=== PATIENT | female | born 1985 | race African-American/Black ===

== ENCOUNTER 2017-07-14 10:59 | Emergency (ER) | payer MEDICAID ==
[2017-07-14] MEDS ORDERED: IPRATROPIUM/ALBUTEROL 0.5-2.5 MG/3 ML AMPUL NEB ONE (11:50)
--- NOTE | 2017-07-14 12:25 | RADIOLOGY REPORT (SQ) ---
EXAM DESCRIPTION: CHEST PA/LAT COMPLETED DATE/TIME: 07/14/2017 12:14 pm REASON FOR STUDY: cough with fever x 1 week COMPARISON: None. EXAM PARAMETERS: NUMBER OF VIEWS: two views TECHNIQUE: Digital Frontal and Lateral radiographic views of the chest acquired. RADIATION DOSE: NA LIMITATIONS: none FINDINGS: LUNGS AND PLEURA: No acute infiltrate or effusion. Lung francis are clear. Bilateral pleu ral thickening. MEDIASTINUM AND HILAR STRUCTURES: No masses or contour abnormalities. HEART AND VASCULAR STRUCTURES: Normal heart and pulmonary vasculature. BONES: No acute findings. HARDWARE: None in the chest. OTHER: No other significant finding. IMPRESSION: All caps TECHNICAL DOCUMENTATION: JOB ID: [id number] 2010 [employer]- All Rights Reserved
--- NOTE | 2017-07-14 12:44 | ER Document Report ---
ED General - General Chief Complaint: Flu Symptoms Stated Complaint: COUGH,CONGESTION,RUNNY NOSE Time Seen by Provider: 07/14/17 11:39 Mode of Arrival: Ambulatory Information source: Patient TRAVEL OUTSIDE OF THE [place] IN LAST 30 DAYS: No - HPI Notes: 32-year-old female presents today with complaints of green productive cough, nasal congestion, sinus pressure, myalgias, fever sore throat and headache x 7 days. Pain 5/10, achy and constant. Denies any rashes. Tried otc cold medications without relief. reports fevers and chills. Eating and drinking ok. Worse when laying flat, better when upright. Vaccinations are UTD, except for flu shot. Denies . Denies any cp, sob, n/v/d, abd pain, dysuria and hemturia - Related Data Allergies/Adverse Reactions: No Known Allergies Allergy (Verified 07/14/17 11:00) Past Medical History - Social History Smoking Status: Current Every Day Smoker Chew tobacco use (# tins/day): No Frequency of alcohol use: Rare Drug Abuse: Marijuana Family History: Reviewed & Not Pertinent Patient has suicidal ideation: No Patient has homicidal ideation: No Renal/ Medical History: Denies: Hx Peritoneal Dialysis Past Surgical History: Reports: Hx Section Review of Systems - Review of Systems Constitutional: No symptoms reported EENT: See HPI Cardiovascular: No symptoms reported Respiratory: See HPI Gastrointestinal: No symptoms reported Genitourinary: No symptoms reported Female Genitourinary: No symptoms reported Musculoskeletal: No symptoms reported Skin: No symptoms reported Hematologic/Lymphatic: No symptoms reported Neurological/Psychological: No symptoms reported Physical Exam - Vital signs Vitals: Temp Pulse Resp BP Pulse Ox 99.0 F 100 22 H 107/68 98 07/14/17 11:14 07/14/17 11:14 07/14/17 11:14 07/14/17 11:14 07/14/17 11:14 Interpretation: Normal - Notes Notes: PHYSICAL EXAMINATION: GENERAL: Well-appearing, well-nourished and in no acute distress. HEAD: Atraumatic, normocephalic. EYES: Pupils equal round and reactive to light, extraocular movements intact, conjunctiva are normal. ENT: TM with effusion, intact, bulging. no erythema. bilateral turbinates with swelling. pharynx without erythema or exudate. no lymphadenopathy. noted nasal congestion and rhinorrhea. NECK: Normal range of motion, supple without lymphadenopathy LUNGS: diminished breath sounds in upper lobes. No accessory muscle usage. BS cleared after breathing treatment. No wheezes, rhonchi or rales. HEART: Regular rate and rhythm without murmurs ABDOMEN: Soft, nontender, nondistended abdomen. No guarding, no rebound. No masses appreciated. Female : deferred Musculoskeletal: Normal range of motion, no pitting or edema. No cyanosis. NEUROLOGICAL: Cranial nerves grossly intact. Normal speech, normal gait. Normal sensory, motor exams PSYCH: Normal mood, normal affect. SKIN: Warm, Dry, normal turgor, no rashes or lesions noted. Course - Re-evaluation Re-evalutation: Rechecked the patient who is resting comfortably. On re-exam, patient is symptomatically improved. Discussed the results of the labs/radiology as well as the diagnosis at great length. Discussed the need to return to the ER for any new or worsening sx. Patient understands to take the Rx as directed. Take antibiotic as directed with food, eat yogurt daily to prevent loose stool. Take prednisone and Tessalon Perles as directed. Keep Ventolin inhaler and a person for when he began to coughing episodes. Work note given. Follow-up with PCP within 3 days. Return to the emergency room symptoms become worse. All questions answered. Patient comfortable with the decision to go home. - Vital Signs Vital signs: Temp Pulse Resp BP Pulse Ox 99.0 F 100 22 H 107/68 98 07/14/17 11:14 07/14/17 11:14 07/14/17 11:14 07/14/17 11:14 07/14/17 11:14 Discharge - Discharge Clinical Impression: Acute bacterial bronchitis Clinical Impression: (Ruled Out): Cough Condition: Good Disposition: HOME, SELF-CARE Additional Instructions: Bronchitis You have acute bronchitis. This disease is an infection or inflammation of the air passageways in your lungs. Symptoms usually include cough, low grade fever, shortness of breath, and wheezing. The cough usually persists for a couple of weeks. Most cases of bronchitis get better without antibiotics. We prescribe antibiotics when we believe bacteria are damaging your airways, or if there's high risk the bronchitis will worsen into pneumonia. Increase your fluid intake. A cool mist humidifier may make your lungs more comfortable. An expectorant (cough medicine that loosens phlegm) can help. If you smoke, STOP!!! Recovery from bronchitis can be somewhat slow, but you should see improvement within a day or two. Repeated episodes of bronchitis may result in lung damage -- for example, chronic bronchitis, recurrent pneumonias, or emphysema. Call the doctor if you develop increasing fever, shortnessBronchitis with Bronchospasm (Wheezing) You have bronchitis with bronchospasm (wheezing). Sometimes people develop wheezing with a chest cold. This occurs either because of an underlying tendency toward asthma or because the virus itself irritates the bronchial tubes. This irritation causes cough, shortness of breath, and wheezing. Emergency treatment of bronchospasm may include adrenaline shots or bronchodilator aerosol. You may feel lightheaded and have a rapid pulse for an hour or two. Rest and get plenty of fluids. At home, we'll treat you with a bronchodilator inhaler. Corticosteroids may be required for some patients. Until you recover, avoid chemical fumes, dusts, pollens, and exercising in very cold or dry air. If you smoke, stop now! Most cases of bronchitis get better without antibiotics. We prescribe antibiotics when we believe bacteria are damaging your airways, or if there's high risk the bronchitis will worsen into pneumonia. Increase your fluid intake. A cool mist humidifier may make your lungs more comfortable. An expectorant (cough medicine that loosens phlegm) can help. Repeated episodes of bronchitis and bronchospasm may result in lung damage -- for example, chronic bronchitis, recurrent pneumonias, or emphysema. If you develop a fever, increased wheezing, chest pain, or severe shortness of breath, you should contact the doctor immediately. of breath, chest pain, bloody sputum, or otherwise worsen. If you have not improved at all after several days, contact the physician. Forms: Return to Work Referrals: LAURE PRICE MD [COMMUNITY BASED STAFF] - Follow up in 3-5 days
[2017-07-14 13:06] VITALS: BP 109/65
== END 2017-07-14 13:06 | disposition home or self-care (01) ==
LOC: ER 10:59
DX: J20.8 Acute bronchitis due to other specified organisms (principal); B96.89 Other specified bacterial agents as the cause of diseases classified elsewhere; F17.200 Nicotine dependence, unspecified, uncomplicated; R05 Cough; R09.81 Nasal congestion; M79.1 Myalgia; J02.9 Acute pharyngitis, unspecified; R51 Headache; R50.9 Fever, unspecified
CPT/HCPCS: 99283; 71046; J7620

== ENCOUNTER 2019-09-26 11:59 | Emergency (ER) | payer MEDICAID ==
--- NOTE | 2019-09-26 12:25 | ER Document Report ---
ED General - General TRAVEL OUTSIDE OF THE U.[place]. IN LAST 30 DAYS: No <MARILYN MENDOZA - Last Filed: 09/26/19 14:13> <JAMIR PAEZ - Last Filed: 09/26/19 17:27> - General Chief Complaint: Near Syncope Stated Complaint: POSSIBLE SYNCOPE Time Seen by Provider: 09/26/19 12:04 - HPI Notes: Chief complaint: "I felt like I was going to pass out" History of present illness: 34-year-old female states she felt fine when she went to work this morning and shortly thereafter became nauseated and vomited once. She says she is felt "dizzy and lightheaded" since then and decided to get a coworker to drive her to the emergency department. She states that while she was riding in the automobile she felt like she was going to pass out although she is not certain if she actually lost consciousness. She continues to feel lightheaded but is somewhat better since arrival here. Patient denies any visual changes or difficulty speaking or swallowing. She denies headache. She denies any focal neurologic symptoms. Patient denies chest pain. She reports that she felt somewhat short of breath earlier. She says she coughed up some clear mucus. She denies fever. She denies shortness of breath at this time. Past medical history is remarkable for history of SLE and she said that at one time about 10 years ago she was briefly admitted to the hospital in coma related to a lupus flare. She also says during that time she had a blood clot in her right leg that was treated with anticoagulation. 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 Patient says she is not seen a doctor within the last 2 to 3 years. She is currently not taking any medications. She has no known allergies. Patient smokes 1 pack of cigarettes per day. Rare social alcohol consumption. Denies drug abuse. (MARILYN MENDOZA) - Related Data Allergies/Adverse Reactions: No Known Allergies Allergy (Verified 07/14/17 11:00) Past Medical History - General Information source: Patient, [facility] Records - Social History Smoking Status: Current Every Day Smoker Frequency of alcohol use: None Drug Abuse: None Family History: Reviewed & Not Pertinent Patient has suicidal ideation: No Patient has homicidal ideation: No - Past Medical History Cardiac Medical History: Reports: Hx Pulmonary Embolism Denies: Hx Coronary Artery Disease Neurological Medical History: Denies: Hx Cerebrovascular Accident, Hx Seizures Endocrine Medical History: Denies: Hx Diabetes Mellitus Type 1, Hx Diabetes Mellitus Type 2 Renal/ Medical History: Denies: Hx Peritoneal Dialysis Past Surgical History: Reports: Hx Section <MARILYN MENDOZA - Last Filed: 09/26/19 14:13> Review of Systems <MARILYN MENDOZA - Last Filed: 09/26/19 14:13> - Review of Systems Notes: Constitutional: Negative for fever. HENT: Negative for sore throat. Eyes: Negative for visual changes. Cardiovascular: Negative for chest pain. Respiratory: As per HPI. Gastrointestinal: As per HPI. Genitourinary: Negative for dysuria. Last normal menstrual period 1 week ago. Musculoskeletal: Negative for back pain. Skin: Negative for rash. Neurological: Negative for headaches, focal weakness or numbness. 10 point ROS negative except as marked above and in HPI. (MENDOZA,MARILYN Blum) Physical Exam <MARILYN MENDOZA - Last Filed: 09/26/19 14:13> - Vital signs Vitals: Temp Pulse Resp BP Pulse Ox 97.9 F 69 16 126/73 H 100 09/26/19 12:19 09/26/19 12:19 09/26/19 12:19 09/26/19 12:19 09/26/19 12:19 - Notes Notes: GENERAL: Well-developed well-nourished appearing in no acute distress. SKIN: Good turgor no rashes. HEAD: Normocephalic atraumatic. EYES: PERRLA. EOMI. Conjunctivae and sclerae clear. EARS: CANALS AND TMS CLEAR. NOSE: CLEAR. MOUTH: Moist mucosa. Good dentition. No stridor or edema. No drooling. NECK: Supple. No masses or thyromegaly. No adenopathy. Carotids 2+ without bruits. No JVD. BACK: Symmetrical without tenderness. CHEST: Respirations unlabored. Breath sounds clear and symmetrical. HEART: Regular rhythm. No murmur gallop or rub. ABDOMEN: Soft nontender without masses, organomegaly or rebound. Bowel sounds normally active. No bruits. GENITALIA: Deferred. EXTREMITIES: Right BKA. No edema. No calf tenderness. Cap refill less than 1.5 seconds. Dorsalis pedis and posterior tibial pulses 3+ and symmetrical. NEUROLOGICAL: GCS 15. Alert and oriented x3. Fluent speech. Cranial nerves II through XII intact. Sensorimotor and cerebellar normal. Normal tone. PSYCHIATRIC: Slightly anxious affect. (MARILYN MENDOZA) Course - Laboratory Result Diagrams: 09/26/19 12:05 09/26/19 12:05 <MARILYN MENDOZA - Last Filed: 09/26/19 14:13> - Laboratory Result Diagrams: 09/26/19 12:05 09/26/19 12:05 - Diagnostic Test Radiology reviewed: Image reviewed, Reports reviewed - EKG Interpretation by Me EKG shows normal: Sinus rhythm Rate: Normal - 68 Rhythm: NSR [place]/QRS: No: Right axis deviation, Left axis deviation <JAMIR PAEZ - Last Filed: 09/26/19 17:27> - Re-evaluation Re-evalutation: 09/26/19 14:13 This lady has a normal chest x-ray and a normal head CT. Her d-dimer was not elevated but she has substantial concern for PE because of history of SLE as well as her cigarette smoking and prior history of thromboembolic disease. We will order VQ scan for her. White count is also 17,000. I do not see any obvious focal source of infection by exam or chest x-ray. She is afebrile here. We are still waiting on urinalysis. A number of pending issues remain for this lady. Further care is turned over to Dr. Paez 1415 hrs. (MARILYN MENDOZA) 09/26/19 17:23 I assumed care of the patient approximately 2pm. Patient has been resting comfortably in the bed for the last 3 hours. She has had a VQ scan that was unremarkable. Other than an elevated white blood cell count her laboratories are also unremarkable. Patient states she feels better. Her presentation is not consistent with COVID. She has no known COVID exposures. I think the patient probably does have a viral syndrome but she is stable for discharge and can follow-up as an outpatient. (JAMIR PAEZ) - Vital Signs Vital signs: Temp Pulse Resp BP Pulse Ox 97.9 F 69 16 126/73 H 100 09/26/19 12:19 09/26/19 12:19 09/26/19 12:19 09/26/19 12:19 09/26/19 12:19 - Laboratory Laboratory results interpreted by me: 09/26/19 09/26/19 12:05 12:05 WBC 17.5 H RDW 15.1 H Absolute Neuts (auto) 11.9 H Sodium 135.1 L Discharge <MARILYN MENDOZA E - Last Filed: 09/26/19 14:13> <JAMIR PAEZ A - Last Filed: 09/26/19 17:27> - Discharge Clinical Impression: Viral syndrome, Near syncope Condition: Stable Disposition: HOME, SELF-CARE Instructions: Viral Syndrome ([facility]) Additional Instructions: Please call your primary provider as soon as possible to arrange for follow-up Forms: Return to Work Referrals: [facility] [Provider Group] - Follow up as needed
[2019-09-26 12:32] LABS: ABSOLUTE BASOPHILS # (AUTO) 0.1 10^3/uL (0.0-0.2); ABSOLUTE EOSINOPHILS # (AUTO) 0.2 10^3/uL (0.0-0.6); ABSOLUTE LYMPHOCYTES (AUTO) 4.5 10^3/uL (0.5-4.7); ABSOLUTE MONOCYTES (AUTO) 0.8 10^3/uL (0.1-1.4); ABSOLUTE NEUT (AUTO) 11.9 10^3/uL (1.7-8.2); BASOPHILS % (AUTO) 0.4 % (0-2); EOSINOPHILS % (AUTO) 1.1 % (0-6); HEMATOCRIT 36.3 % (36.0-47.0); HEMOGLOBIN 12.4 g/dL (12.0-15.5); LYMPHOCYTES % (AUTO) 25.6 % (13-45); MEAN CORPUSCULAR HEMOGLOBIN 29.3 pg (27.0-33.4); MEAN CORPUSCULAR VOLUME 86 fl (80-97); MONOCYTES % (AUTO) 4.8 % (3-13); PLATELET COUNT 203 10^3/uL (150-450); RED BLOOD COUNT 4.22 10^6/uL (3.72-5.28); RED CELL DISTRIBUTION WIDTH 15.1 % (11.5-14.0); SEGMENTED NEUTROPHILS % (AUTO) 68.1 % (42-78); TOTAL CELLS COUNTED % (AUTO) 100 %; WHITE BLOOD COUNT 17.5 10^3/uL (4.0-10.5)
[2019-09-26 12:33] LABS: PROTHROMBIN TIME 12.1 SEC (11.4-15.4)
[2019-09-26 12:54] LABS: ALBUMIN 3.9 g/dL (3.5-5.0); ALCOHOL < 10 mg/dL (NONE DETECTED); ALKALINE PHOSPHATASE 110 U/L (38-126); ANION GAP 7 (5-19); ASPARTATE AMINO TRANSFERASE 15 U/L (14-36); BILIRUBIN,TOTAL 0.3 mg/dL (0.2-1.3); BLOOD UREA NITROGEN 16 mg/dL (7-20); CALCIUM 9.2 mg/dL (8.4-10.2); CARBON DIOXIDE 23 mmol/L (22-30); CHLORIDE 105 mmol/L (98-107); GLUCOSE 89 mg/dL (75-110); POTASSIUM 4.6 mmol/L (3.6-5.0); TOTAL PROTEIN 7.7 g/dL (6.3-8.2)
--- NOTE | 2019-09-26 13:00 | RADIOLOGY REPORT (SQ) ---
EXAM DESCRIPTION: CHEST SINGLE VIEW IMAGES COMPLETED DATE/TIME: 09/26/2019 12:49 pm REASON FOR STUDY: dyspnea COMPARISON: 07/14/2017 EXAM PARAMETERS: NUMBER OF VIEWS: One view. TECHNIQUE: Single frontal radiographic view of the chest acquired. RADIATION DOSE: NA LIMITATIONS: None. FINDINGS: LUNGS AND PLEURA: No opacities, masses or pneumothorax. No pleural effusion. MEDIASTINUM AND HILAR STRUCTURES: No masses. Contour normal. HEART AND VASCULAR STRUCTURES: Heart normal in size. Normal vasculature. BONES: No acute findings. HARDWARE: None in the chest. OTHER: No other significant finding. IMPRESSION: NO ACUTE RADIOGRAPHIC FINDING IN THE CHEST. TECHNICAL DOCUMENTATION: JOB ID: [id number] 2010 [employer]- All Rights Reserved Reading location - IP/workstation name: [email or web address]
--- NOTE | 2019-09-26 13:04 | RADIOLOGY REPORT (SQ) ---
EXAM DESCRIPTION: CT HEAD WITHOUT IMAGES COMPLETED DATE/TIME: 09/26/2019 12:46 pm REASON FOR STUDY: syncope COMPARISON: None. TECHNIQUE: Axial images acquired through the brain without intravenous contrast. Images reviewed wi th bone, brain and subdural windows. Images stored on PACS. All CT scanners at this facility use dose modulation, iterative reconstruction, and/or weight based d osing when appropriate to reduce radiation dose to as low as reasonably achievable (ALARA). [facility]: Dose Right [facility]: CareDose [facility]: Dose Right [facility]: Teradose 4D [facility]: Eye-Fi RADIATION DOSE: CT Rad equipment meets quality standard of care and radiation dose reduction techniq ues were employed. CTDIvol: 53.2 mGy. DLP: 991 mGy-cm. mGy. LIMITATIONS: None. FINDINGS: VENTRICLES: Normal size and contour. CEREBRUM: No masses. No hemorrhage. No midline shift. No evidence for acute infarction. Normal gra y/white matter differentiation. No areas of low density in the white matter. CEREBELLUM: No masses. No hemorrhage. No alteration of density. No evidence for acute infarction. EXTRAAXIAL SPACES: No fluid collections. No masses. ORBITS AND GLOBE: No intra- or extraconal masses. Normal contour of globe without masses. CALVARIUM: No fracture. PARANASAL SINUSES: No fluid or mucosal thickening. SOFT TISSUES: No mass or hematoma. Mild adenoid hypertrophy with small tonsillith. OTHER: No other significant finding. IMPRESSION: NO ACUTE INTRACRANIAL IMAGING FINDINGS. EVIDENCE OF ACUTE STROKE: NO. COMMENT: Quality ID # [id number]: Final reports with documentation of one or more dose reduction techniques (e.g., Automated exposure control, adjustment of the mA and/or kV according to patient size, use of iterative reconstruction technique) TECHNICAL DOCUMENTATION: JOB ID: [id number] 2010 [employer]- All Rights Reserved Reading location - IP/workstation name: [email or web address]
[2019-09-26] MEDS ORDERED: NORMAL SALINE 1000 ML 1,000 ML IV ONE (13:11)
[2019-09-26] MEDS ORDERED: ONDANSETRON HCL INJ/PF 4 MG/2 ML SDV IV ONE (13:12)
[2019-09-26] MEDS ORDERED: FENTANYL CITRATE INJ/PF 100 MCG/2 ML AMPUL IV ONE (13:13)
[2019-09-26] MEDS ORDERED: MORPHINE SULFATE 10 MG/ML INJ IV ONE (15:59)
[2019-09-26 16:04] LABS: APPEARANCE,URINE CLEAR; BILIRUBIN,URINE NEGATIVE (NEGATIVE); COLOR,URINE STRAW; GLUCOSE, URINE NEGATIVE (NEGATIVE); KETONES,URINE NEGATIVE (NEGATIVE); PROTEIN,URINE NEGATIVE (NEGATIVE); URINE SPECIFIC GRAVITY 1.008; UROBILINOGEN,URINE NEGATIVE mg/dL (<2.0)
--- NOTE | 2019-09-26 16:07 | RADIOLOGY REPORT (SQ) ---
EXAM DESCRIPTION: NM LUNG PERFUSION SCAN IMAGES COMPLETED DATE/TIME: 09/26/2019 3:47 pm REASON FOR STUDY: sob/syncope COMPARISON: None. RADIONUCLIDE AND DOSE: 5.27 millicuries TC-99m MAA The route of agent administration: Intravenous TECHNIQUE: Eight views of the lungs acquired following injection of MAA. LIMITATIONS: None. FINDINGS: PERFUSION: Perfusion images with normal homogenous activity and no wedge-shaped or segment al defects. OTHER: No other significant finding. IMPRESSION: NORMAL PERFUSION LUNG SCAN. TECHNICAL DOCUMENTATION: JOB ID: [id number] 2010 [employer]- All Rights Reserved Reading location - IP/workstation name: [email or web address]
[2019-09-26 16:16] LABS: URINE AMPHETAMINES SCREEN NEGATIVE; URINE BARBITURATES SCREEN NEGATIVE; URINE BENZODIAZEPINES SCREEN NEGATIVE; URINE COCAINE SCREEN NEGATIVE; URINE METHADONE SCREEN NEGATIVE; URINE PHENCYCLIDINE SCREEN NEGATIVE
[2019-09-26 16:17] LABS: URINE MARIJUANA (THC) SCREEN UNCONFIRMED POSITIVE
[2019-09-26 17:27] VITALS: BP 122/72
--- NOTE | 2019-09-26 22:51 | EKG REPORT ---
SEVERITY:- OTHERWISE NORMAL ECG - SINUS RHYTHM SINUS ARRHYTHMIA : Confirmed by: Kyree De Jesus 26-Sep-2019 22:50:47
== END 2019-09-26 17:30 | disposition home or self-care (01) ==
LOC: ER 11:59
DX: R55 Syncope and collapse (principal); B34.9 Viral infection, unspecified; M32.9 Systemic lupus erythematosus, unspecified; R11.2 Nausea with vomiting, unspecified; R42 Dizziness and giddiness; D72.829 Elevated white blood cell count, unspecified; Z86.718 Personal history of other venous thrombosis and embolism; Z89.511 Acquired absence of right leg below knee; F17.210 Nicotine dependence, cigarettes, uncomplicated; Z86.711 Personal history of pulmonary embolism
CPT/HCPCS: 93005; 99285; 96361; 96374; 96375; 36415; 80307 ×2; 83605; 83735; 84703; 85025; 85610; 85730; 80053; 81001; 84484; 85379; 71045; 78580; 70450; 93010; A9540; J3010; J2270; J2405; J7030; Q9969

== ENCOUNTER → 2020-05-01 | Outpatient (CLI) | payer MEDICAID ==
--- NOTE | 2020-05-01 16:04 | RADIOLOGY REPORT (SQ) ---
EXAM DESCRIPTION: U/S MB2CLHT TRNABD 1GES W/ODOP IMAGES COMPLETED DATE/TIME: 05/01/2020 3:49 pm REASON FOR STUDY: Z34.81 ENCOUNTER FOR SUPRVSN OF NORMAL , FIRST TRIMESTER Z34.81 ENCOUNTE R FOR SUPRVSN OF NORMAL , FIRST TRIM COMPARISON: None. TECHNIQUE: Transvaginal static and realtime grayscale images acquired of the pelvis. Additional josiah cted spectral and color Doppler images recorded. All images stored on PACs. CLINICAL AGE: 6 weeks 5 days. bHCG: Not available. LIMITATIONS: None. FINDINGS: Gestational sac with no yolk sac visualized. Questionable pole 3.4 mm corresponding to 6 weeks. No heart tones. Ovaries are normal. IMPRESSION: POSSIBLE EARLY INTRAUTERINE . BHCG LEVEL NOT AVAILABLE FOR CORRELATION WITH US FINDINGS. CONSIDER F/U BHCG AND/OR ULTRASOUND FOR VERIFICATION AND TO EXCLUDE ECTOPIC . Trimester of : First trimester - 0 to 13 weeks. TECHNICAL DOCUMENTATION: JOB ID: [id number] 2010 [email or web address]- All Rights Reserved Reading location - IP/workstation name: [email or web address]
== END ==
LOC: RAD 14:54
PROVIDERS: ATTEND Midwife
DX: Z34.81 Encounter for supervision of other normal pregnancy, first trimester (principal)
CPT/HCPCS: 76801

== ENCOUNTER 2020-05-28 11:32 | Day surgery (SDC) | payer MEDICAID ==
[2020-05-25 12:57] LABS: APPEARANCE,URINE CLEAR; BILIRUBIN,URINE NEGATIVE (NEGATIVE); COLOR,URINE STRAW; GLUCOSE, URINE NEGATIVE (NEGATIVE); KETONES,URINE NEGATIVE (NEGATIVE); LEUKOCYTE ESTERASE,URINE NEGATIVE (NEGATIVE); NITRITE,URINE NEGATIVE (NEGATIVE); PROTEIN,URINE NEGATIVE (NEGATIVE); UROBILINOGEN,URINE NEGATIVE mg/dL (<2.0)
[2020-05-25 12:59] LABS: HEMATOCRIT 34.8 % (36.0-47.0); HEMOGLOBIN 11.6 g/dL (12.0-15.5); MEAN CORPUSCULAR HEMOGLOBIN 28.5 pg (27.0-33.4); MEAN CORPUSCULAR HGB CONC 33.4 g/dL (32.0-36.0); MEAN CORPUSCULAR VOLUME 85 fl (80-97); PLATELET COUNT 252 10^3/uL (150-450); RED BLOOD COUNT 4.08 10^6/uL (3.72-5.28); RED CELL DISTRIBUTION WIDTH 14.7 % (11.5-14.0); WHITE BLOOD COUNT 13.9 10^3/uL (4.0-10.5)
[~2020-05-28 11:32] MED LIST: DEXAMETHASONE SOD PHOSPHATE INJ 4 MG/1 ML VIAL ONE; FENTANYL CITRATE INJ/PF 100 MCG/2 ML AMPUL ONE; KETOROLAC TROMETHAMINE 60 MG/2 ML SDV ONE; LACTATED RINGERS 1000 ML IV PRN; MIDAZOLAM 2 MG/2 ML INJ ONE; ONDANSETRON HCL INJ/PF 4 MG/2 ML SDV ONE; PROPOFOL INJ 200 MG/20 ML VIAL IV ONE
[2020-05-28] MEDS ORDERED: BUPIVACAINE HCL 0.25% /EPINEPHRINE INJ/PF 30 ML SDV ONE (12:42)
--- NOTE | 2020-05-28 13:54 | Operative Report ---
Operative Report DATE OF SURGERY: 05/28/20 PREOPERATIVE DIAGNOSIS: Missed first trimester OPERATION: Suction dilation and currettage SURGEON: JAMES EARL ANESTHESIA: LMAC TISSUE REMOVED OR ALTERED: products of conception COMPLICATIONS: None ESTIMATED BLOOD LOSS: 75 cc INTRAOPERATIVE FINDINGS: Cervix not dilated. Uterus palpated to small, <10 wks PROCEDURE: IV fluids: Crystalloid IV fluids per anesthesia record Disposition: To recovery room in stable condition Description of the procedure: The patient was taken to the operating room where monitored anesthesia was administered and found to be adequate. She was then placed in the dorsol lithotomy position and prepped and draped in the usual sterile fashion. A timeout was taken. A bivalve spectulum was used to bring the cervix into good view. A single-tooth tenaculum was used to grasp the anterior lip of the cervix and the cervix was serially dilated. The single tooth tenaculm pulled off the cervix and a double tooth tenaculum was then used. The uterus sounded to approximately 8.5 cm and the cervix was serially dilated to approximately 8mm. The #8 suction curette was inserted and using suction, the products of conception were removed. The suction curette was removed and a regular curette was advanced to the uterine fundus. Gentle curettage was done in a circumferential manner until a gritty texture was noted. The curette was removed and suction curette re-inserted to the fundus. Suction curettage done once more. The tissue obtained will be sent to the lab as products of conception. Part of sample sent fresh for Chromosomes. The procedure was then terminated all instrument to remove the patient's vagina. The patient tolerated the procedure well all instrument sponge and needle counts were correct x2 for the procedure she will proceed to recovery room in stable condition
--- NOTE | 2020-05-28 13:55 | Discharge Summary ---
Discharge Summary (SDC) - Discharge Final Diagnosis: Missed Date of Surgery: 05/28/20 Discharge Date: 05/28/20 Condition: Stable Treatment or Instructions: Walk frequently Regular diet No intercourse until post-op visit May shower as needed and pat incision dry No driving a car until narcotic prescriptions stopped and can make sudden movements Prescriptions: Doxycycline Monohydrate 100 mg PO Q12 5 Days #10 tablet Doxycycline Monohydrate 100 mg PO Q12 5 Days #10 capsule Ibuprofen [Ibu] 800 mg PO Q8 10 Days #30 tablet Ibuprofen [Ibu] 800 mg PO Q8 10 Days #30 tablet Hydrocodone/Acetaminophen [[place] 5-325 mg Tablet] 1 tab PO Q4 PRN 3 Days #15 tablet PRN Reason: For Pain Scale 4-5 Hydrocodone/Acetaminophen [[place] 5-325 mg Tablet] 1 tab PO Q4 PRN 3 Days #15 tablet PRN Reason: For Pain Scale 4-5 Hydrocodone/Acetaminophen [[place] 5-325 mg Tablet] 1 tab PO Q4 3 Days #15 tablet Referrals: JAMES EARL MD [ACTIVE PROVISIONAL STAFF] - 06/12/20 Respiratory Treatments at Home: Deep Breathing/Coughing Discharge Activity: Activity As Tolerated Home Care Assistance: None Needed Report the Following to Your Physician Immediately: Shortness of Breath, Increase in Pain, Fever over 101 Degrees, Drainage-Foul Smelling, IV Site Infection Signs
[2020-05-28] MEDS: FENTANYL CITRATE INJ/PF 100 MCG/2 ML AMPUL ONE ×2 (14:07→14:16)
[2020-05-28] MEDS ORDERED: OXYCODONE-ACETAMINOPHEN 5-325 MG TABLET PO PRN ×2 (14:14)
[2020-05-28] MEDS ORDERED: KETOROLAC TROMETHAMINE INJ/PF 30 MG/1 ML SDV IM PRN (14:14)
[2020-05-28] MEDS ORDERED: IBUPROFEN 800 MG TABLET PO PRN (14:14)
[2020-05-28] MEDS ORDERED: OXYCODONE-ACETAMINOPHEN 5-325 MG TABLET ONE (14:52)
[2020-05-28] MEDS ORDERED: NORMAL SALINE INJ/PF 0.9% 10 ML SDV ONE (15:16)
[2020-05-28 16:43] VITALS: BP 118/75
== END 2020-05-28 15:55 | disposition home or self-care (01) ==
LOC: OROUT 11:32
PROVIDERS: ATTEND Obstetrics & Gynecology
DX: O02.1 Missed abortion (principal); Z20.828 Contact with and (suspected) exposure to other viral communicable diseases; F17.200 Nicotine dependence, unspecified, uncomplicated
CPT/HCPCS: 59820; 36415; 85027; 87635; 81001; 88305 ×2; 01965; J2250; J3490 ×2; J1100; J1885; J3010; J2405; J2704; C9803; 1965